=== PATIENT | female | born 1945 | race Caucasian/White ===

== ENCOUNTER → 2016-09-06 | Outpatient (CLI) | payer MEDICARE, OTHER ==
[~2016-09-06] MED LIST: AMLO5TAB; OLME20TA11 PO
== END ==
LOC: WC.BC 11:11
PROVIDERS: ATTEND Family Medicine
DX: Z12.31 Encounter for screening mammogram for malignant neoplasm of breast (principal)
CPT/HCPCS: 77063; G0202

== ENCOUNTER 2016-09-15 06:51 | Day surgery (SDC) | payer MEDICARE, OTHER ==
[~2016-09-15] VITALS: Ht 163.8 cm; Wt 87.3 kg
[~2016-09-15 06:51] MED LIST changes: -AMLO5TAB; +AMLO5TAB2 PO; +LOSA1TAB96 PO; -OLME20TA11 PO
--- OUTSIDE RECORDS SUMMARY | 2016-09-15 06:56 | XMS REPORT | Referral Summary ---
Author Author [facility], Family Medicine Organization [facility] Address Unknown Phone Unavailable Care Team Providers Care Exhaust Worker Name Role Phone Claire Noland Primary Care Physician [phone] Encounter VC Date(s): 03/16/15 - 03/16/15 [facility] [address] [place] [id number] Discharge Diagnosis: Benign essential hypertension Discharge Diagnosis: Leg cramps Discharge Diagnosis: Mixed hyperlipidemia Discharge Disposition: 01-Home or Self Care Attending Physician: Cody Noland MD Admitting Physician: Cody Noland MD Vital Signs Most recent to 1 oldest [Reference Range]: Temperature Tympanic 36.5 degC [36.6-38.1 degC] *LOW* (03/16/15 10:23 AM) Peripheral Pulse 76 bpm Rate [60-100 bpm] (03/16/15 10:23 AM) Blood Pressure 144/82 mmHg [90-140/60-90 mmHg] *HI* (03/16/15 10:23 AM) Problem List Condition Effective Dates Status Health Status Informant Adenomatous colon Active polyp(Confirmed) Allergic rhinitis Active (disorder)(Confirmed ) Allergic < 03/12/14 Resolved rhinitis(Confirmed) Allergies(Confirmed) < 03/12/14 Resolved Benign essential Active hypertension (disorder)(Confirmed ) DDD (degenerative Active disc disease), lumbosacral(Confirme d) Hyperlipidemia(Confi Active rmed) Hypertension(Confirm < 03/12/14 Resolved ed) Low back pain Resolved (finding)(Confirmed) Lumbago(Confirmed) < 03/12/14 Resolved Lumbosacral Resolved spondylosis without myelopathy (disorder)(Confirmed ) Lumbosacral < 03/12/14 Resolved spondylosis without myelopathy(Confirmed ) Menopausal < 03/12/14 Resolved symptoms(Confirmed)1 Migraines(Confirmed) Active Obesity(Confirmed) Active patient Osteoarthritis(Confi Active rmed) Osteoporosis(Confirm Active ed) Chronic back Active pain(Confirmed) Thoracic or < 03/12/14 Resolved lumbosacral neuritis or radiculitis, unspecified(Confirme d) 1postmenopausal hot flashes Allergies, Adverse Reactions, Alerts Substance Reaction Severity Status Benazepril Hydrochloride Active Medications amLODIPine 5 mg oral tablet See Instructions, 1 tabs Oral Daily, # 30 tabs, 4 Refill(s), eRx: [facility], 1 tabs Oral Daily Start Date: 07/13/15 Status: Ordered biotin 300 mcg oral tablet 1 tabs, Oral, Daily Start Date: 03/12/14 Status: Ordered Doryx 200 mg oral delayed release tablet 100 mg 0.5 tabs, Oral, Daily, # 60 tabs, 1 Refill(s), Pharmacy: [facility], 0.5 tabs Oral Daily Start Date: 04/06/15 Status: Ordered doxycycline hyclate 100 mg oral capsule 100 mg 1 caps, Oral, Daily, # 60 caps, 2 Refill(s), Pharmacy: [facility], 1 caps Oral Daily Start Date: 07/10/15 Status: Ordered Flonase 50 mcg/inh nasal spray See Instructions, 2 sprays Nasal Daily, # 1 Each, 5 Refill(s), eRx: [facility], 2 sprays Nasal Daily Start Date: 08/06/15 Status: Ordered Hyzaar 50 mg-12.5 mg oral tablet See Instructions, 1 tabs Oral Daily, # 30 tabs, 3 Refill(s), other reason (Rx) Start Date: 03/16/15 Status: Ordered losartan-hydrochlorothiazide 100 mg-25 mg oral tablet 1 tabs, Oral, Daily, # 30 tabs, 5 Refill(s), Pharmacy: [facility] Start Date: 06/05/15 Status: Ordered Misc Medication 1 tabs, Oral, Daily, 0 Refill(s) Start Date: 03/17/14 Status: Ordered Probiotic Formula caps, Oral, Daily, 0 Refill(s) Start Date: 12/29/14 Status: Ordered Vitamin D3 0 Refill(s) Start Date: 03/16/15 Status: Ordered Vitamin D3 1000 intl units oral tablet 1,000 Intl_Units 1 tabs, Oral, Daily, # 30 tabs, 0 Refill(s), other reason (Rx) Start Date: 03/16/15 Status: Ordered Results No data available for this section Immunizations Vaccine Date Refusal Reason tetanus/diphth/pertuss (Tdap) adult/adol 09/20/06 influenza virus vaccine, inactivated1 03/17/14 pneumococcal 13-valent conjugate vaccine 03/17/14 pneumococcal 23-polyvalent vaccine 05/29/08 1Result Comment: [03/17/2014] SEE SCANNED NOTE Procedures Procedure Date Related Diagnosis Body Site Left L4-5 translaminar 11/20/12 S/P colonoscopy1 06/02/11 S/p right breast biopsy 2010 Oophorectomy 1999 S/P vaginal hysterectomy - laparoscopy2 1989 S/P tubal ligation 1984 S/p appendectomy S/p cholecystectomy 1f/u 5 years 2nonmalignant Social History Social History Type Response Smoking Status Never smoker Assessment and Plan Extracted from: Title: Office Visit Note Author: Cody Noland MD Date: 03/16/15 Assessment/Plan Benign essential hypertension Leg cramps Mixed hyperlipidemia Orders: amLODIPine, See Instructions, 1 tabs Oral Daily, # 30 tabs, 3 Refill(s ), other reason (Rx), 1 tabs Oral Daily cholecalciferol, 1,000 Intl_Units 1 tabs, Oral, Daily, # 30 tabs, 0 Refill(s) , other reason (Rx) losartan-hydrochlorothiazide, See Instructions, 1 tabs Oral Daily, # 30 tabs, 3 Refill(s), other reason (Rx) Blood pressure today and at her last visit are both just slightly elevated. However she thinks this is due to increased stress and after discussion we decided not to change medications. She will work harder on lifestyle issues and monitor blood pressures 2-3 times per week for a month. She is to give me a report on those blood pressures after one month. If doing well follow-up in 6 months. At that she is also due for follow-up lipids which we will obtain fasting another day. Because of leg cramps I'll also check a BMP at that upcoming lab.
--- OUTSIDE RECORDS SUMMARY | 2016-09-15 06:56 | XMS REPORT | Referral Summary ---
Author Author [facility] Dermatology Organization [facility] Address Unknown Phone Unavailable Care Team Providers Care Account Executive Trainee Name Role Phone Claire Noland Primary Care Physician [phone] Encounter [facility] [id number] Date(s): 07/08/15 - 07/08/15 [facility] Dermatology [address], [place] [address] Discharge Diagnosis: Granulomatous rosacea Discharge Disposition: 01-Home or Self Care Attending Physician: Preet Jimenez MD Admitting Physician: Preet Jimenez MD Referring Physician: Cody Noland MD Vital Signs No data available for this section Problem List Condition Effective Dates Status Health [...] # 30 tabs, 3 Refill(s), other reason (Rx), 1 tabs Oral Daily Start Date: 03/16/15 Status: Ordered biotin 300 mcg oral tablet 1 tabs, Oral, Daily Start Date: 03/12/14 Status: Ordered Doryx 200 mg oral delayed release tablet See Instructions, Take 1/2 tablet QD, # 45 tabs, 3 Refill(s), Pharmacy: [facility], Take 1/2 tablet QD Start Date: 07/08/15 Status: Ordered Doryx 200 mg oral delayed release tablet 100 mg 0.5 tabs, Oral, Daily, # 60 tabs, 1 Refill(s), Pharmacy: [facility], 0.5 tabs Oral Daily Start Date: 04/06/15 Status: Ordered Flonase 50 mcg/inh nasal spray 2 sprays, Nasal, Daily, # 1 Each, 6 Refill(s), Pharmacy: [facility] Start Date: 07/22/14 Status: Ordered Hyzaar 50 mg-12.5 mg oral tablet See Instructions, 1 tabs Oral Daily, # 30 tabs, 3 Refill(s), other reason (Rx) Start Date: 03/16/15 Status: Ordered losartan-hydrochlorothiazide 100 mg-25 mg oral tablet 1 tabs, Oral, Daily, # 30 tabs, 5 Refill(s), Pharmacy: [facility] Start Date: 06/05/15 Status: Ordered Misc Medication [...] Extracted from: Title: Office Visit Note Author: Preet Jimenez MD Date: 07/08/15 Assessment/Plan 1.Granulomatous rosacea Not clear but some areas appear to be somewhat improved. No new lesions since her last visit. We discussed options and she will continue [id number] mg per dayand follow-up in 6 months. We will then reevaluate and decide if he wanted continue therapy or discontinue therapy at that time Ordered: Office Visit Level 3 Est 91959
--- OUTSIDE RECORDS SUMMARY | 2016-09-15 06:56 | XMS REPORT | Referral Summary ---
Author Author [facility] Family Medicine Organization [facility] Address Unknown Phone Unavailable Care Team Providers Care Upholsterer Assembly Line Name Role Phone Claire Noland Primary Care Physician [phone] Encounter Date(s): 06/13/16 - 06/13/16 [facility] [address] [place] [address] Discharge Diagnosis: Cough Discharge Diagnosis: Osteoarthritis Discharge Diagnosis: Allergic rhinitis Discharge Diagnosis: Benign essential hypertension Discharge Diagnosis: Osteoporosis Discharge Diagnosis: Overweight Discharge Diagnosis: Adenomatous colon polyp Discharge Diagnosis: Hyperlipidemia Discharge Diagnosis: Subacute sinusitis Discharge Diagnosis: Urine incontinence Discharge Diagnosis: Right sided abdominal pain Discharge Disposition: 01-Home or Self Care Attending Physician: Cody Noland MD Admitting Physician: Cody Noland MD Vital Signs Most recent to 1 oldest [Reference Range]: Peripheral Pulse 82 bpm Rate [60-100 bpm] (06/13/16 8:24 AM) Blood Pressure 140/80 mmHg [90-140/60-90 mmHg] (06/13/16 8:24 AM) Problem List Condition Effective Dates Status [...] Active Medications amLODIPine 5 mg oral tablet 5 mg 1 tabs, Oral, Daily, # 90 tabs, 3 Refill(s), Pharmacy: [facility], 1 tabs Oral Daily Start Date: 12/04/15 Status: Ordered biotin 300 mcg oral tablet 1 tabs, Oral, Daily Start Date: 03/12/14 Status: Ordered Flonase 50 mcg/inh nasal spray See Instructions, 2 sprays Nasal Daily, # 1 Each, 5 Refill(s), eRx: [facility], 2 sprays Nasal Daily Start Date: 08/06/15 Status: Ordered losartan-hydrochlorothiazide 100 mg-25 mg oral tablet 1 tabs, Oral, Daily, # 90 tabs, 3 Refill(s), Pharmacy: [facility] Start Date: 12/04/15 Status: Ordered Vitamin D3 1000 intl units oral tablet 1,000 Intl_Units 1 tabs, Oral, Daily, # 30 tabs, 0 Refill(s), other reason (Rx) Start Date: 03/16/15 Status: Ordered Results Hematology Most recent to 1 oldest [Reference Range]: WBC [4.8-10.8 12.4 10*3/uL 10*3/uL] *HI* (06/13/16 9:11 AM) RBC [4.00-5.20] 5.08 (06/13/16 9:11 AM) Hgb [12.0-16.0 15.6 gm/dL gm/dL] (06/13/16 9:11 AM) Hct [37.0-47.0 %] 48.3 % *HI* (06/13/16 9:11 AM) MCV [82.0-99.0 fL] 95.1 fL (06/13/16 9:11 AM) MCH [27.0-32.0 pg] 30.7 pg (06/13/16 9:11 AM) MCHC [32.0-36.0 32.3 gm/dL gm/dL] (06/13/16 9:11 AM) RDW [11.5-14.5 %] 13.4 % (06/13/16 9:11 AM) Platelet [150-400 320 10*3/uL 10*3/uL] (06/13/16 9:11 AM) MPV [8.8-14.8 fL] 10.3 fL (06/13/16 9:11 AM) Immature 1.8 % Granulocytes *HI* [0.0-1.0 %] (06/13/16 9:11 AM) Neutrophils [51-75 51 % %] (06/13/16 9:11 AM) Lymphocytes [20-46 34 % %] (06/13/16 9:11 AM) Monocytes [4-11 %] 11 % (06/13/16 9:11 AM) Eosinophils [0-4 %] 2 % (06/13/16 9:11 AM) Basophils [0-2 %] 0 % (06/13/16:11 AM) Neutro Absolute 6.35 [1.90-7.00] (06/13/16 9:11 AM) Lymph Absolute 4.19 [0.80-3.30] *HI* (06/13/16 9:11 AM) [place] Absolute 1.34 [0.30-1.00] *HI* (06/13/16 9:11 AM) Eos Absolute 0.28 [0.00-0.50] (06/13/16 9:11 AM) Baso Absolute 0.04 [0.00-0.20] (06/13/16 9:11 AM) Sed Rate [0-23] 5 (06/13/16 9:11 AM) Chemistry Most recent to 1 oldest [Reference Range]: Sodium Lvl [135-144 142 mEq/L mEq/L] (06/13/16 9:11 AM) Potassium Lvl 4.0 mEq/L [3.5-5.2 mEq/L] (06/13/16 9:11 AM) Chloride [99-111 104 mEq/L mEq/L] (06/13/16 9:11 AM) CO2 [22-31 mEq/L] 28 mEq/L (06/13/16 9:11 AM) AGAP [3-20] 10 (06/13/16 9:11 AM) BUN [10-20 mg/dL] 19 mg/dL (06/13/16 9:11 AM) Glucose Lvl [70-99 94 mg/dL mg/dL] (06/13/16 9:11 AM) Creatinine Lvl 0.89 mg/dL [0.57-1.11 mg/dL] (06/13/16 9:11 AM) eGFR [>60 mL/min] >60 mL/min 1 (06/13/16 9:11 AM) Calcium Lvl 10.3 mg/dL [8.9-10.5 mg/dL] (06/13/16 9:11 AM) Chol [0-199 mg/dL] 240 mg/dL *HI* (06/13/16 9:11 AM) Trig [0-149 mg/dL] 295 mg/dL *HI* (06/13/16 9:11 AM) HDL [40-84 mg/dL] 43 mg/dL (06/13/16 9:11 AM) LDL [0-130 mg/dL] 138 mg/dL *HI* (06/13/16 9:11 AM) VLDL Cholesterol 59 mg/dL [0-28 mg/dL] *HI* (06/13/16 9:11 AM) Cardiac Risk 5.6 [0.0-5.0] *HI* (06/13/16 9:11 AM) 1Result Comment: Multiply eGFR results by 1.21 for race. Urinalysis Most recent to 1 oldest [Reference Range]: UA Color Yellow (06/13/16 9:18 AM) UA Appear Cloudy *ABN* (06/13/16 9:18 AM) UA pH [5.0-8.0] 6.0 (06/13/16 9:18 AM) UA Leuk Est Pos 1+ [Negative] *ABN* (06/13/16 9:18 AM) UA Nitrite Negative [Negative] (06/13/16 9:18 AM) UA Protein Trace [Negative] *ABN* (06/13/16 9:18 AM) UA Glucose Negative [Negative] (06/13/16 9:18 AM) UA Ketones Negative [Negative] (06/13/16 9:18 AM) UA Urobilinogen 0.2 mg/dL [<1.0 mg/dL] (06/13/16 9:18 AM) UA Bili [Negative] Negative (06/13/16 9:18 AM) UA Blood [Negative] Negative (06/13/16 9:18 AM) UA Spec Grav 1.025 [1.003-1.030] (06/13/16 9:18 AM) Type Clean Catch (06/13/16 9:18 AM) UA WBC [0-4] 20-50 *ABN* (06/13/16 9:18 AM) UA RBC [0-4] 5-10 *ABN* (06/13/16 9:18 AM) UA Bacteria Numerous *ABN* (06/13/16 9:18 AM) Crystals Ca Ox (06/13/16 9:18 AM) UA Yeast Present *ABN* (06/13/16 9:18 AM) UA Mucous Present (06/13/16 9:18 AM) Immunizations Given and Recorded Vaccine Date Status Refusal Reason tetanus/diphth/pertuss (Tdap) adult/adol 09/20/06 Recorded influenza virus vaccine, inactivated1 03/17/14 Recorded pneumococcal 13-valent conjugate vaccine 03/17/14 Given pneumococcal 23-polyvalent vaccine 05/29/08 Recorded 1Result Comment: [03/17/2014] SEE SCANNED NOTE Procedures Procedure Date Related Diagnosis Body Site Left L4-5 translaminar 11/20/12 S/P colonoscopy1 06/02/11 S/p right breast biopsy 2010 Oophorectomy 1999 S/P vaginal hysterectomy - laparoscopy2 1989 S/P tubal ligation 1984 S/p appendectomy S/p cholecystectomy 1f/u 5 years 2nonmalignant Social History Social History Type Response Smoking Status Never smoker Assessment and Plan Extracted from: [facility] Author: Cody Noland MD Date: 06/13/16 Impression and Plan Diagnosis Adenomatous colon polyp (JFL22-EP D12.6, Discharge, Medical). Allergic rhinitis (QRR08-[place] J30.9, Discharge, Medical). Benign essential hypertension (TAU18-RJ I10, Discharge, Medical). Cough (DKU39-FB R05, Discharge, Medical). Hyperlipidemia (ZVA07-RF E78.5, Discharge, Medical). Osteoarthritis (DXF58-ER M19.90, Discharge, Medical). Osteoporosis (VXF83-UO M81.0, Discharge, Medical). Overweight (OTE81-DH E66.3, Discharge, Medical). Right sided abdominal pain (BCZ08-WE R10.9, Discharge, Medical). Subacute sinusitis (JLC68-WK J01.90, Discharge, Medical). Urine incontinence (ADS53-DM R32, Discharge, Medical). Orders Orders (Selected) Outpatient Orders Future (On Hold) BMP: CBC w/ Differential: Fasting Lipid Profile: Sedimentation Rate: Urinalysis with Culture if Indicated: .
--- OUTSIDE RECORDS SUMMARY | 2016-09-15 06:57 | XMS REPORT | Referral Summary ---
Author Author [facility], Family Medicine Organization [facility] Address Unknown Phone Unavailable Care Team Providers Care Special Police Officer Name Role Phone Claire Noland Primary Care Physician [phone] Encounter VC Date(s): 03/16/15 - 03/16/15 [facility] [address] [place] [id number] Discharge Diagnosis: Benign essential hypertension Discharge Diagnosis: [...] Resolved Benign essential Active hypertension (disorder)(Confirmed ) Chronic back Active pain(Confirmed) DDD (degenerative Active disc disease), lumbosacral(Confirme d) Hyperlipidemia(Confi Active rmed) Hypertension(Confirm < 03/12/14 Resolved ed) Low back pain Resolved (finding)(Confirmed) Lumbago(Confirmed) < 03/12/14 Resolved Lumbosacral Resolved spondylosis without myelopathy (disorder)(Confirmed ) Lumbosacral < 03/12/14 Resolved spondylosis without myelopathy(Confirmed ) Menopausal < 03/12/14 Resolved symptoms(Confirmed)1 Migraines(Confirmed) Active Obesity(Confirmed) Active patient Osteoarthritis(Confi Active rmed) Osteoporosis(Confirm Active ed) Thoracic or < 03/12/14 Resolved lumbosacral neuritis [...] Daily, # 1 Each, 6 Refill(s), Pharmacy: [facility] Start Date: 07/22/14 Status: Ordered Hyzaar 50 mg-12.5 mg oral tablet See Instructions, 1 tabs Oral Daily, # 30 tabs, 3 Refill(s), other reason (Rx) Start Date: 03/16/15 Status: Ordered Misc Medication 1 tabs, Oral, [...] Left L4-5 translaminar 11/20/12 S/P colonoscopy1 06/02/11 Oophorectomy 2010 S/p right breast biopsy 2010 Oophorectomy 1999 [...]
--- OUTSIDE RECORDS SUMMARY | 2016-09-15 06:57 | XMS REPORT | Referral Summary ---
Author Author [facility] Family Medicine Organization [facility] Address Unknown Phone Unavailable Care Team Providers Care Inpatient Coder Name Role Phone Claire Noland Primary Care Physician [phone] Encounter [facility] Date(s): 03/16/15 - 03/16/15 [facility] [address] [place] [address] Discharge Diagnosis: Benign essential hypertension [...] Daily, # 1 Each, 6 Refill(s), Pharmacy: [facility] Start Date: 07/22/14 Status: Ordered [...]
--- OUTSIDE RECORDS SUMMARY | 2016-09-15 06:57 | XMS REPORT | Referral Summary ---
Author Author [facility] Family Medicine Organization [facility] Address Unknown Phone Unavailable Care Team Providers Care Cd Reactor Operator Head Name Role Phone Claire Noland Primary Care Physician [phone] Encounter VC Date(s): 10/22/14 - 10/22/14 [facility] [address] [place] [address] Discharge Diagnosis: Benign essential hypertension Discharge Diagnosis: Right shoulder pain Discharge Diagnosis: Hand tingling Discharge Disposition: 01-Home or Self Care Attending Physician: Cody Noland MD Admitting Physician: Cody Noland MD Vital Signs Most recent to 1 oldest [Reference Range]: Temperature Tympanic 36.1 degC [36.6-38.1 degC] *LOW* (10/22/14 9:38 AM) Peripheral Pulse 64 bpm Rate [60-100 bpm] (10/22/14 9:38 AM) Blood Pressure 160/69 mmHg [90-140/60-90 mmHg] *HI* (10/22/14 9:38 AM) Problem List Condition Effective Dates Status [...] Daily, # 60 tabs, 1 Refill(s), Pharmacy: [facility], 0.5 tabs Oral Daily Start Date: 04/06/15 Status: Ordered Flonase 50 mcg/inh nasal spray 2 sprays, Nasal, Daily, # 1 Each, 6 Refill(s), Pharmacy: [facility] Start Date: 07/22/14 Status: Ordered Hyzaar 50 [...] Visit Note Author: Cody Noland MD Date: 10/22/14 Assessment/Plan Benign essential hypertension Blood pressure elevated today, and I advised her that the anti-inflammatory may also contribute to blood pressure elevation. Recommend monitoring. Hand tingling Distribution is consistent with the C6 or C7 nerve root, but is intermittent. At this point we will manage conservatively and follow. Right shoulder pain I suspect primarily rotator cuff strain. Refer for physical therapy and we'll try meloxicam. Follow-up for reevaluation in 2-3 weeks. Orders: meloxicam, 15 mg 1 tabs, Oral, Daily, # 20 tabs, 0 Refill(s), Pharmacy : [facility], 1 tabs Oral Daily
--- OUTSIDE RECORDS SUMMARY | 2016-09-15 06:57 | XMS REPORT | Referral Summary ---
Author Author [facility] Family Medicine Organization [facility] Address Unknown Phone Unavailable Care Team Providers Care Child Care Lead Teacher Name Role Phone Claire Noland Primary Care Physician [phone] Encounter VC Date(s): 11/26/14 - 11/26/14 [facility] Family [address] [place] [address] Discharge Diagnosis: Benign essential hypertension Discharge Diagnosis: Allergic rhinitis Discharge Diagnosis: Right shoulder pain Discharge Disposition: 01-Home or Self Care Attending Physician: Cody Noland MD Admitting Physician: Cody Noland MD Vital Signs Most recent to 1 oldest [Reference Range]: Temperature Tympanic 35.2 degC [36.6-38.1 degC] *LOW* (11/26/14 8:54 AM) Peripheral Pulse 68 bpm Rate [60-100 bpm] (11/26/14 8:54 AM) Blood Pressure 145/78 mmHg [90-140/60-90 mmHg] *HI* (11/26/14 8:54 AM) Problem List Condition Effective Dates Status [...] Daily, # 60 tabs, 1 Refill(s), Pharmacy: [facility], 0.5 tabs Oral Daily Start Date: [...] Visit Note Author: Cody Noland MD Date: 11/27/14 Assessment/Plan Allergic rhinitis Benign essential hypertension Borderline. Advised monitoring. Right shoulder pain Continue physical therapy and we will approve additional visits if that seems likely to be of benefit- follow-up when necessary.
--- OUTSIDE RECORDS SUMMARY | 2016-09-15 06:57 | XMS REPORT | CCD ---
Author Author [facility] Organization Unknown Address [address], [place] [id number] Phone 0 Care Team Providers Care Registered Nurse Ambulatory Name Role Phone Claire MONAE Attending Physician [phone] Vital Signs Unknown or Not Available. Allergies Unknown or Not Available. Procedures Unknown or Not Available. History of Immunizations Unknown or Not Available. Problems Unknown or Not Available. Results Unknown or Not Available. Active Medications Unknown or Not Available. Medications Administered During Visit Unknown or Not Available. Encounters Encounter Diagnosis Diagnosis Code Start Date PHYSICAL THERAPY NEC V571 11/03/2014 Social History Smoking Status Code Start Date End Date Never smoker [id number] Patient Decision Aids Unknown or Not Available. Discharge Instructions You were admitted to [facility] on 11/03/2014 with a principal diagnosis of PHYSICAL THERAPY NEC. Should you have any questions prior to discharge, please contact a member of your healthcare team. If you have left the hospital and have any questions, please contact your primary care physician. Chief Complaint and Reason For Visit Unknown or Not Available. Function Status Unknown or Not Available. Plan of Care Unknown or Not Available. Referral/Transition of Care Unknown or Not Available.
--- OUTSIDE RECORDS SUMMARY | 2016-09-15 06:57 | XMS REPORT | Referral Summary ---
Author Author [facility] Organization [facility] Address Unknown Phone Unavailable Care Team Providers Care Hobbing Press Operator Name Role Phone Claire Noland Primary Care Physician [phone] Encounter VC Date(s): 12/29/14 - 12/29/14 [facility] Family [address] [place] [address] Discharge Diagnosis: Folliculitis Discharge Diagnosis: Family history of MRSA infection Discharge Disposition: 01-Home or Self Care Attending Physician: Ahmet Eldridge DO Admitting Physician: Ahmet Eldridge DO Vital Signs Most recent to 1 oldest [Reference Range]: Temperature Tympanic 36.6 degC [36.6-38.1 degC] (12/29/14 12:50 PM) Apical Heart Rate 76 bpm [60-100 bpm] (12/29/14 12:50 PM) Blood Pressure 122/62 mmHg [90-140/60-90 mmHg] (12/29/14 12:50 PM) SpO2 97 % (12/29/14 12:50 PM) Problem List Condition Effective Dates Status Health [...] Daily, # 60 tabs, 1 Refill(s), Pharmacy: [facility], 0.5 tabs Oral Daily Start Date: 04/06/15 Status: Ordered doxycycline hyclate 100 mg oral capsule 100 mg 1 caps, Oral, Daily, # 60 caps, 2 Refill(s), Pharmacy: [facility], 1 caps Oral Daily Start Date: 07/10/15 Status: Ordered Flonase 50 mcg/inh nasal spray 2 sprays, Nasal, Daily, # 1 Each, 6 Refill(s), Pharmacy: [facility] Start Date: 07/22/14 Status: Ordered Hyzaar 50 mg-12.5 mg oral tablet See Instructions, 1 tabs Oral Daily, # 30 tabs, 3 Refill(s), other reason (Rx) Start Date: 03/16/15 Status: Ordered losartan-hydrochlorothiazide 100 mg-25 mg oral tablet 1 tabs, Oral, Daily, # 30 tabs, 5 Refill(s), Pharmacy: [facility] Start Date: 06/05/15 Status: Ordered Misc [...] Extracted from: Title: Office Visit Note Author: Ahmet Eldridge DO Date: 12/29/14 Assessment/Plan Family history of MRSA infection 1. We will treat her with Bactrim to cover MRSA. Ordered: Office Visit Level 3 Est 49443 Folliculitis 1. No rashes more consistent with folliculitis. 2. Bactrim double strength one tablet twice a day for 7 days. 3. Follow-up if worsening presentation. Ordered: Office Visit Level 3 Est 12039 Orders: sulfamethoxazole-trimethoprim, 1 tabs, Oral, BID, X 7 days, # 14 tabs , 0 Refill(s), Pharmacy: [facility]
--- OUTSIDE RECORDS SUMMARY | 2016-09-15 06:57 | XMS REPORT | Referral Summary ---
Author Author [facility] Organization [facility] Address Unknown Phone Unavailable Care Team Providers Care [employer] Principal Name Role Phone Claire Noland Primary Care Physician [phone] Encounter Date(s): 03/18/15 - 03/18/15 [facility] [address] [place], [place] [address] Discharge Diagnosis: Skin rash Discharge Disposition: 01-Home or Self Care Attending [...] Daily, # 1 Each, 6 Refill(s), Pharmacy: [facility] Start Date: 07/22/14 Status: Ordered [...] (Rx) Start Date: 03/16/15 Status: Ordered Results Chemistry Most recent to 1 oldest [Reference Range]: Sodium Lvl [135-144 141 mEq/L mEq/L] (03/18/15 9:55 AM) Potassium Lvl 4.6 mEq/L [3.5-5.2 mEq/L] (03/18/15 9:55 AM) Chloride [99-111 107 mEq/L mEq/L] (03/18/15 9:55 AM) CO2 [22-31 mEq/L] 27 mEq/L (03/18/15 9:55 AM) AGAP [3-20] 7 (03/18/15 9:55 AM) BUN [10-20 mg/dL] 13 mg/dL (03/18/15 9:55 AM) Glucose Lvl [70-99 89 mg/dL mg/dL] (03/18/15 9:55 AM) Creatinine Lvl 0.79 mg/dL [0.57-1.11 mg/dL] (03/18/15 9:55 AM) eGFR [>60 mL/min] >60 mL/min 1 (03/18/15 9:55 AM) Calcium Lvl 10.1 mg/dL [8.9-10.5 mg/dL] (03/18/15 9:55 AM) Chol [0-199 mg/dL] 239 mg/dL *HI* (03/18/15 9:55 AM) Trig [0-149 mg/dL] 245 mg/dL *HI* (03/18/15 9:55 AM) HDL [40-84 mg/dL] 42 mg/dL (03/18/15 9:55 AM) LDL [0-130 mg/dL] 148 mg/dL *HI* (03/18/15 9:55 AM) VLDL Cholesterol 49 mg/dL [0-28 mg/dL] *HI* (03/18/15 9:55 AM) Cardiac Risk 5.7 [0.0-5.0] *HI* (03/18/15 9:55 AM) 1Result Comment: Multiply eGFR results by 1.21 for race. Immunizations Vaccine Date Refusal Reason tetanus/diphth/pertuss (Tdap) adult/adol 09/20/06 influenza virus vaccine, inactivated1 03/17/14 pneumococcal 13-valent conjugate vaccine 03/17/14 pneumococcal 23-polyvalent vaccine 05/29/08 1Result Comment: [03/17/2014] SEE SCANNED NOTE Procedures Procedure Date Related Diagnosis Body Site Biopsy of skin, subcutaneous tissue and/or 03/18/15 mucous membrane (including simple closure), unless otherwise listed; single lesion Left L4-5 translaminar 11/20/12 S/P colonoscopy1 06/02/11 Oophorectomy 2010 S/p right breast biopsy 2010 Oophorectomy 1999 S/P vaginal hysterectomy - laparoscopy2 1989 S/P tubal ligation 1984 S/p appendectomy S/p cholecystectomy 1f/u 5 years 2nonmalignant Social History Social History Type Response Smoking Status Never smoker Assessment and Plan Extracted from: Title: Office Visit Note Author: Preet Jimenez MD Date: 03/18/15 Assessment/Plan 1.Skin rash This could be a folliculitis but I also want to rule out a type of atypical lymphoid process or granulomatous process. 4 mm punch biopsy today and follow-up in a week for suture removal or sooner for problems. Follow-up with me in a routine appointment slot in 3 weeks or so to review results and decide on treatment course Ordered: Biopsy Of Skin, Single Lesion 82948 Office Visit Level 2 New 96595
--- OUTSIDE RECORDS SUMMARY | 2016-09-15 06:57 | XMS REPORT | Continuity of Care Document ---
Author Author [facility] Organization [facility] Address Unknown Phone Unavailable Allergies Medications Problems Procedures Results Encounters ACCT No. Visit Date/Time Discharge Status Pt. Type Provider Facility Loc./Unit Complaint [id number] 08/22/2013 09:08:00 08/22/2013 23 :59:59 CLS Outpatient
--- OUTSIDE RECORDS SUMMARY | 2016-09-15 06:57 | XMS REPORT | Referral Summary ---
Author Author [facility] Organization [facility] Address Unknown Phone Unavailable Care Team Providers Care Cargo And Ramp Services Manager Name Role Phone Claire Noland Primary Care Physician [phone] Encounter Date(s): 12/04/15 - 12/04/15 [facility] [address] [place] [address] Discharge Diagnosis: Encounter for medication monitoring Discharge Diagnosis: Palpitations Discharge Diagnosis: Muscle strain of right upper back Discharge Diagnosis: Hyperlipidemia Discharge Diagnosis: Benign essential hypertension Discharge Disposition: 01-Home or Self Care Attending Physician: Cody Noland MD Admitting Physician: Cody Noland MD Vital Signs Most recent to 1 oldest [Reference Range]: Temperature Tympanic 35.6 degC [36.6-38.1 degC] *LOW* (12/04/15 8:03 AM) Peripheral Pulse 68 bpm Rate [60-100 bpm] (12/04/15 8:03 AM) Blood Pressure 142/73 mmHg [90-140/60-90 mmHg] *HI* (12/04/15 8:03 AM) Problem List Condition Effective Dates Status [...] Daily, # 90 tabs, 3 Refill(s), Pharmacy: [facility], 1 tabs Oral Daily Start Date: 12/04/15 Status: Ordered biotin 300 mcg oral tablet 1 tabs, Oral, Daily Start Date: 03/12/14 Status: Ordered Flonase 50 mcg/inh nasal spray See Instructions, 2 sprays Nasal Daily, # 1 Each, 5 Refill(s), eRx: [facility], 2 sprays Nasal Daily Start Date: 08/06/15 Status: Ordered losartan-hydrochlorothiazide 100 mg-25 mg oral tablet 1 tabs, Oral, Daily, # 90 tabs, 3 Refill(s), Pharmacy: [facility] Start Date: 12/04/15 Status: Ordered Vitamin D3 1000 intl units oral tablet 1,000 Intl_Units 1 tabs, Oral, Daily, # 30 tabs, 0 Refill(s), other reason (Rx) Start Date: 03/16/15 Status: Ordered Results Chemistry Most recent to 1 oldest [Reference Range]: Sodium Lvl [135-144 141 mEq/L mEq/L] (12/04/15 9:43 AM) Potassium Lvl 3.8 mEq/L [3.5-5.2 mEq/L] (12/04/15 9:43 AM) Chloride [99-111 105 mEq/L mEq/L] (12/04/15 9:43 AM) CO2 [22-31 mEq/L] 27 mEq/L (12/04/15 9:43 AM) AGAP [3-20] 9 (12/04/15 9:43 AM) BUN [10-20 mg/dL] 14 mg/dL (12/04/15 9:43 AM) Glucose Lvl [70-99 100 mg/dL mg/dL] *HI* (12/04/15 9:43 AM) Creatinine Lvl 0.76 mg/dL [0.57-1.11 mg/dL] (12/04/15 9:43 AM) eGFR [>60 mL/min] >60 mL/min 1 (12/04/15 9:43 AM) Calcium Lvl 10.2 mg/dL [8.9-10.5 mg/dL] (12/04/15 9:43 AM) Albumin Lvl [3.4-4.8 4.4 gm/dL gm/dL] (12/04/15 9:43 AM) Total Protein 6.6 gm/dL 2 [6.0-7.6 gm/dL] (12/04/15 9:43 AM) ALT [0-55 U/L] 15 U/L (12/04/15 9:43 AM) AST [5-34 U/L] 14 U/L (12/04/15 9:43 AM) Alk Phos [40-150 82 U/L U/L] (12/04/15 9:43 AM) Bili Total [0.2-1.2 1.0 mg/dL mg/dL] (12/04/15 9:43 AM) Bili Direct [0.0-0.5 0.3 mg/dL mg/dL] (12/04/15 9:43 AM) Bili Indirect 0.7 mg/dL [0.0-1.0 mg/dL] (12/04/15 9:43 AM) TSH with Reflex Free 1.55 T4 [0.35-4.94] (12/04/15 9:43 AM) 1Result Comment: Multiply eGFR results by 1.21 for race. 2Result Comment: Please note new reference range for adult Protein. Immunizations Vaccine Date Refusal Reason tetanus/diphth/pertuss (Tdap) adult/adol 09/20/06 influenza virus vaccine, inactivated1 03/17/14 pneumococcal 13-valent conjugate vaccine 03/17/14 pneumococcal 23-polyvalent vaccine 05/29/08 1Result Comment: [03/17/2014] SEE SCANNED NOTE Procedures Procedure Date Related Diagnosis Body Site Left L4-5 translaminar 11/20/12 S/P colonoscopy1 06/02/11 S/p right breast biopsy 2011 Oophorectomy 1999 S/P vaginal hysterectomy - laparoscopy2 1989 S/P tubal ligation 1984 S/p appendectomy S/p cholecystectomy 1f/u 5 years 2nonmalignant Social History Social History Type Response Smoking Status Never smoker Assessment and Plan Extracted from: Title: Holter Monitor Author: Elma Schilling RN Date: 12/04/15 Holter monitor ordered by Dr. Noland was placed on patient today. Reviewed with her monitor care and logging instructions. She verbalized understanding. Instructed her to remove monitor after 24 hours due to it being Monday today, remove the battery and bring in the monitor and log on Monday. She verbalized understanding. Extracted from: Title: CDM-OV * Author: Cody Noland MD Date: 12/04/15 Impression and Plan Diagnosis Encounter for medication monitoring ([id number] Z51.81, Discharge, Medical). Benign essential hypertension (LPZ13-[id number] I10, Discharge, Medical). Hyperlipidemia (GER28-QH E78.5, Discharge, Medical). Palpitations (ZJM21-ZR R00.2, Discharge, Medical). Muscle strain of right upper back (YMJ96-UD S29.012A, Discharge, Medical). Orders Orders (Selected) Outpatient Orders Future (On Hold) BMP: Liver Panel: TSH with Reflex Free T4: Prescriptions Prescribed amLODIPine 5 mg oral tablet: 5 mg=1 tabs, Oral, Daily, 90 tabs, 3 Refill(s) losartan-hydrochlorothiazide 100 mg-25 mg oral tablet: 1 tabs, Oral, Daily, 90 tabs, 3 Refill(s).
--- OUTSIDE RECORDS SUMMARY | 2016-09-15 06:57 | XMS REPORT | Referral Summary ---
Author Author [facility] Organization [facility] Address Unknown Phone Unavailable Care Team Providers Care Bankruptcy Processor Name Role Phone Claire Noland Primary Care Physician [phone] Encounter [facility] [id number] Date(s): 12/08/15 - 12/08/15 [facility] [address] [place], [place] [address] Discharge Disposition: 01-Home or Self Care Attending Physician: Cody Noland MD Vital Signs No [...] Daily, # 90 tabs, 3 Refill(s), Pharmacy: [facility], 1 tabs Oral Daily Start Date: 12/04/15 Status: Ordered biotin 300 mcg oral tablet 1 tabs, Oral, Daily Start Date: 03/12/14 Status: Ordered Flonase 50 mcg/inh nasal spray See Instructions, 2 sprays Nasal Daily, # 1 Each, 5 Refill(s), eRx: [facility], 2 sprays Nasal Daily Start Date: 08/06/15 Status: Ordered losartan-hydrochlorothiazide 100 mg-25 mg oral tablet 1 tabs, Oral, Daily, # 90 tabs, 3 Refill(s), Pharmacy: [facility] Start Date: 12/04/15 Status: Ordered [...] Smoking Status Never smoker Assessment and Plan No data available for this section
--- OUTSIDE RECORDS SUMMARY | 2016-09-15 06:57 | XMS REPORT | Referral Summary ---
Author Author [facility] Organization [facility] Address Unknown Phone Unavailable Care Team Providers Care Shell Worker Name Role Phone Claire Noland Primary Care Physician [phone] Encounter [facility] [id number] Date(s): 06/05/15 - 06/05/15 [facility] [address] [place] [address] Discharge Diagnosis: Osteoarthritis Discharge Diagnosis: Osteoporosis Discharge Diagnosis: Migraines Discharge Diagnosis: Benign essential hypertension Discharge Diagnosis: Hyperlipidemia Discharge Diagnosis: Hx of adenomatous polyp of colon Discharge Diagnosis: Allergic rhinitis Discharge Diagnosis: Chronic back pain Discharge Disposition: 01-Home or Self Care Attending Physician: Cody Noland MD Admitting Physician: Cody Noland MD Vital Signs Most recent to 1 oldest [Reference Range]: Peripheral Pulse 71 bpm Rate [60-100 bpm] (06/05/15 7:54 AM) Blood Pressure 130/80 mmHg [90-140/60-90 mmHg] (06/05/15 7:54 AM) Problem List Condition Effective Dates Status [...] Daily, # 60 tabs, 1 Refill(s), Pharmacy: [facility], 0.5 tabs Oral Daily Start Date: 04/06/15 Status: Ordered Flonase 50 mcg/inh nasal spray 2 sprays, Nasal, Daily, # 1 Each, 6 Refill(s), Pharmacy: [facility] Start Date: 07/22/14 Status: Ordered Hyzaar 50 mg-12.5 mg oral tablet See Instructions, 1 tabs Oral Daily, # 30 tabs, 3 Refill(s), other reason (Rx) Start Date: 03/16/15 Status: Ordered losartan-hydrochlorothiazide 100 mg-25 mg oral tablet 1 tabs, Oral, Daily, # 30 tabs, 5 Refill(s), Pharmacy: [facility] Start Date: 06/05/15 Status: Ordered [...] Range]: Sodium Lvl [135-144 142 mEq/L mEq/L] (06/05/15 9:18 AM) Potassium Lvl 4.0 mEq/L [3.5-5.2 mEq/L] (06/05/15 9:18 AM) Chloride [99-111 105 mEq/L mEq/L] (06/05/15 9:18 AM) CO2 [22-31 mEq/L] 27 mEq/L (06/05/15 9:18 AM) AGAP [3-20] 10 (06/05/15 9:18 AM) BUN [10-20 mg/dL] 14 mg/dL (06/05/15 9:18 AM) Glucose Lvl [70-99 103 mg/dL mg/dL] *HI* (06/05/15 9:18 AM) Creatinine Lvl 0.82 mg/dL [0.57-1.11 mg/dL] (06/05/15 9:18 AM) eGFR [>60 mL/min] >60 mL/min 1 (06/05/15 9:18 AM) Calcium Lvl 10.7 mg/dL [8.9-10.5 mg/dL] *HI* (06/05/15 9:18 AM) 1Result Comment: Multiply eGFR results by [...] smoker Assessment and Plan Extracted from: Title: CRMMP Author: Cody Noland MD Date: 06/05/15 Assessment/Plan Allergic rhinitis Benign essential hypertension Ordered: Basic Metabolic Panel Chronic back pain Hx of adenomatous polyp of colon Hyperlipidemia Migraines Osteoarthritis Osteoporosis Ordered: BD Bone Density DEXA Axial Skeleton BD Bone Density DEXA Axial Skeleton Orders: losartan-hydrochlorothiazide, 1 tabs, Oral, Daily, # 30 tabs, 5 Refill (s), Pharmacy: [facility] Blood pressure not quite adequately controlled. We will increase losartan- HCTZ from 50-12.5 up to 100-25. Prescription provided, but she can use up her current supply by taking 2 pills daily. She is to monitor blood pressures and give me an update in one month as to how they're doing. If this goes well. Follow-up in 6 months. Otherwise continue present care. We will recheck bone density study today. BMP ordered as monitoring. She is due for repeat colonoscopy in May,. Follow-up in 6 months or sooner if needed.
--- OUTSIDE RECORDS SUMMARY | 2016-09-15 06:57 | XMS REPORT | Referral Summary ---
Author Author [facility] Organization [facility] Address Unknown Phone Unavailable Care Team Providers Care Python Developer Name Role Phone Claire Noland Primary Care Physician [phone] Encounter Date(s): 04/06/15 - 04/06/15 [facility] [address] [place], [place] [address] Discharge Diagnosis: Granulomatous rosacea Discharge Disposition: 01-Home [...] Daily, # 60 tabs, 1 Refill(s), Pharmacy: [facility], 0.5 tabs Oral Daily Start Date: 04/06/15 Status: Ordered Flonase 50 mcg/inh nasal spray 2 sprays, Nasal, Daily, # 1 Each, 6 Refill(s), Pharmacy: [facility] Start Date: 07/22/14 Status: Ordered Hyzaar [...] smoker Assessment and Plan Extracted from: Title: Ambulatory Patient Education Author: Preet Jimenez MD Date: 04/06 Family [facility] Rosacea Rosacea is a long-term (chronic) condition that affects the skin of the face ( cheeks, nose, brow, and chin) and sometimes the eyes. Rosacea causes the blood vessels near the surface of the skin to enlarge, resulting in redness. This condition usually begins after age 30. It occurs most often in light-skinned women. Without treatment, rosacea tends to get worse over time. There is no cure for rosacea, but treatment can help control your symptoms. CAUSES The cause is unknown. It is thought that some people may inherit a tendency to develop rosacea. Certain triggers can make your rosacea worse, including: Hot baths. Exercise. Sunlight. Very hot or cold temperatures. Hot or spicy foods and drinks. Drinking alcohol. Stress. Taking blood pressure medicine. Long-term use of topical steroids on the face. SYMPTOMS Redness of the face. Red bumps or pimples on the face. Red, enlarged nose (rhinophyma). Blushing easily. Red lines on the skin. Irritated or burning feeling in the eyes. Swollen eyelids. DIAGNOSIS Your caregiver can usually tell what is wrong by asking about your symptoms and performing a physical exam. TREATMENT Avoiding triggers is an important part of treatment. You will also need to see a on site services specialist (shirt ironer) who can develop a treatment plan for you. The goals of treatment are to control your condition and to improve the appearance of your skin. It may take several weeks or months of treatment before you notice an improvement in your skin. Even after your skin improves, you will likely need to continue treatment to prevent your rosacea from coming back. Treatment methods may include: Using sunscreen or sunblock daily to protect the skin. Antibiotic medicine, such as metronidazole, applied directly to the skin. Antibiotics taken by mouth. This is usually prescribed if you have eye problems from your rosacea. Laser surgery to improve the appearance of the skin. This surgery can reduce the appearance of red lines on the skin and can remove excess tissue from the nose to reduce its size. HOME CARE INSTRUCTIONS Avoid things that seem to trigger your flare-ups. If you are given antibiotics, take them as directed. Finish them even if you start to feel better. Use a gentle facial cleanser that does not contain alcohol. You may use a mild facial moisturizer. Use a sunscreen or sunblock with SPF 30 or greater. Wear a green-tinted foundation powder to conceal redness, if needed. Choose cosmetics that are noncomedogenic. This means they do not block your pores. If your eyelids are affected, apply warm compresses to the eyelids. Do this up to 4 times a day or as directed by your caregiver. SEEK MEDICAL CARE IF: Your skin problems get worse. You feel depressed. You lose your appetite. You have trouble concentrating. You have problems with your eyes, such as redness or itching. MAKE SURE YOU: Understand these instructions. Will watch your condition. Will get help right away if you are not doing well or get worse. Document Released: 06/15/2005 Document Revised: 11/06/2012 Document Reviewed: [facility] [place] Patient Information 2015 [place] [facility]. This information is not intended to replace advice given to you by your health care provider. Make sure you discuss any questions you have with your health care provider. No follow up information was provided. Extracted from: Title: Office Visit Note Author: Preet Jimenez MD Date: 04/06/15 Assessment/Plan 1.Granulomatous rosacea Biopsy and presentation consistent with granulomatous rosacea. We discussed options and risks and sun protection and will treat with Doryx 100 mg per day and follow-up in 3 months to adjust dose as needed. We discussed risks and safe and proper use the medication. We will order the medication through [facility] mail-order pharmacy Ordered: Office Visit Level 3 Est 02661
--- OUTSIDE RECORDS SUMMARY | 2016-09-15 06:57 | XMS REPORT | Referral Summary ---
Author Author [facility] Organization [facility] Address Unknown Phone Unavailable Care Team Providers Care Operational Meteorologist Name Role Phone Claire Noland Primary Care Physician [phone] Encounter [facility] Date(s): 03/16/15 - 03/16/15 [facility] [address] [place] [address] Discharge Diagnosis: Benign essential hypertension Discharge [...] Daily, # 1 Each, 6 Refill(s), Pharmacy: [facility] Start Date: 07/22/14 Status: [...]
--- OUTSIDE RECORDS SUMMARY | 2016-09-15 06:57 | XMS REPORT | Referral Summary ---
Author Author [facility] Organization [facility] Address Unknown Phone Unavailable Care Team Providers Care Family Lawyer Name Role Phone Claire Noland Primary Care Physician [phone] Encounter [facility] Date(s): 02/04/15 - 02/04/15 [facility] [address] [place] [address] Discharge Diagnosis: Folliculitis Discharge Disposition: 01-Home or Self Care Attending Physician: Ahmet Eldridge DO Admitting Physician: Ahmet Eldridge DO Vital Signs Most recent to 1 oldest [Reference Range]: Temperature Tympanic 35 degC [36.6-38.1 degC] *LOW* (02/04/15 1:38 PM) Peripheral Pulse 68 bpm Rate [60-100 bpm] (02/04/15 1:38 PM) Blood Pressure 144/80 mmHg [90-140/60-90 mmHg] *HI* (02/04/15 1:38 PM) Problem List Condition Effective Dates Status [...] Daily, # 30 tabs, 4 Refill(s), eRx: [facility], 1 tabs Oral Daily Start Date: 07/13/15 Status: Ordered biotin 300 mcg oral tablet 1 tabs, Oral, Daily Start Date: 03/12/14 Status: Ordered Doryx 200 mg oral delayed release tablet 100 mg 0.5 tabs, Oral, Daily, # 60 tabs, 1 Refill(s), Pharmacy: [facility], 0.5 tabs Oral Daily Start Date: 04/06/15 Status: Ordered doxycycline hyclate 100 mg oral capsule 100 mg 1 caps, Oral, Daily, # 60 caps, 2 Refill(s), Pharmacy: [facility], 1 caps Oral Daily Start Date: 07/10/15 Status: Ordered Flonase 50 mcg/inh nasal spray See Instructions, 2 sprays Nasal Daily, # 1 Each, 5 Refill(s), eRx: [facility], 2 sprays Nasal Daily Start Date: 08/06/15 Status: Ordered Hyzaar 50 mg-12.5 mg oral tablet See Instructions, 1 tabs Oral Daily, # 30 tabs, 3 Refill(s), other reason (Rx) Start Date: 03/16/15 Status: Ordered losartan-hydrochlorothiazide 100 mg-25 mg oral tablet 1 tabs, Oral, Daily, # 30 tabs, 5 Refill(s), Pharmacy: [facility] Start Date: 06/05/15 Status: Ordered Misc Medication [...] (Rx) Start Date: 03/16/15 Status: Ordered Results Microbiology Reports TEST: Wound Culture STATUS: Auth (Verified) BODY SITE: Forehead SOURCE: Skin COLLECTED DATE/TIME: 02/04/15 2:00 PM Wound Culture Staphylococcus, coagulase negative Small amount Susceptibility not performed ORGANISM:Staphylococcus coagulase negative Immunizations Vaccine Date Refusal Reason tetanus/diphth/pertuss (Tdap) [...] Visit Note Author: Ahmet Eldridge DO Date: 02/04/15 Assessment/Plan Folliculitis, OTHER SPECIFIED DISEASES OF HAIR AND HAIR FOLLICLES Pathophysiology of this presentation, and differential diagnosis, discussed in detail with the patient and her who was present. All questions were answered. 1. Culture obtained, once we get report we will discuss with the patient and treat accordingly. 2. If the culture is inconclusive then we plan on sending her to dermatology for further evaluation. Ordered: Office Visit Level 3 Est 11912 Rash, RASH AND OTHER NONSPECIFIC SKIN ERUPTION As above. Ordered: Office Visit Level 3 Est 20429 Wound Culture
--- OUTSIDE RECORDS SUMMARY | 2016-09-15 06:57 | XMS REPORT | Referral Summary ---
Author Author [facility] Organization [facility] Address Unknown Phone Unavailable Care Team Providers Care Fuse Maker Name Role Phone Claire Noland Primary Care Physician [phone] Encounter Date(s): 03/18/15 - 03/18/15 [facility] [address] [place], [place] [address] Discharge Diagnosis: Skin rash Discharge Disposition: 01-Home [...] Daily, # 30 tabs, 4 Refill(s), eRx: [facility], 1 tabs Oral Daily Start Date: 07/13/15 Status: Ordered biotin 300 mcg oral tablet 1 tabs, Oral, Daily Start Date: 03/12/14 Status: Ordered Doryx 200 mg oral delayed release tablet 100 mg 0.5 tabs, Oral, Daily, # 60 tabs, 1 Refill(s), Pharmacy: [facility], 0.5 tabs Oral Daily Start Date: 04/06/15 Status: Ordered doxycycline hyclate 100 mg oral capsule 100 mg 1 caps, Oral, Daily, # 60 caps, 2 Refill(s), Pharmacy: [facility], 1 caps Oral Daily Start Date: 07/10/15 Status: Ordered Flonase 50 mcg/inh nasal spray See Instructions, 2 sprays Nasal Daily, # 1 Each, 5 Refill(s), eRx: [facility], 2 sprays Nasal Daily Start Date: 08/06/15 Status: Ordered Hyzaar 50 mg-12.5 mg oral tablet See Instructions, 1 tabs Oral Daily, # 30 tabs, 3 Refill(s), other reason (Rx) Start Date: 03/16/15 Status: Ordered losartan-hydrochlorothiazide 100 mg-25 mg oral tablet 1 tabs, Oral, Daily, # 30 tabs, 5 Refill(s), Pharmacy: [facility] Start Date: 06/05/15 Status: Ordered Misc [...] course Ordered: Biopsy Of Skin, Single Lesion 05092 Office Visit Level 2 New 13951
[2016-09-15 07:00] VITALS: Ht 163.8 cm; Wt 87.3 kg
[2016-09-15] MEDS ORDERED: LR 1,000 ML IV SCH (07:00)
[2016-09-15] MEDS ORDERED: LIDOCAINE 1% (10mg/ml) 2ml SDV INJ ONE (07:00)
[2016-09-15 07:01] VITALS: BP 167/78; PULSE 75; RESP 14; TEMP 98.2; O2SAT 95
[2016-09-15] MEDS ORDERED: BIOT10004 (07:14)
[2016-09-15] MEDS ORDERED: VITAMIN D (07:15)
--- NOTE | 2016-09-15 07:25 | ANESPREOP ---
Anesthesia Record Date and Time DATE: 09/15/16 TIME: 07:23 Pre-Op Diagnosis hx of polyps Proposed Surgical Procedure COLONOSCOPY Allergies: Coded Allergies: benazepril HCl (Verified Allergy, Unknown, 09/15/16) Ht/Wt/BMI Height: 5 ' 4.50 " Weight: 87.300 kg BMI: 32.5 kg/m2 Vital Signs Date Time Temp Pulse Resp B/P Pulse Ox O2 Delivery O2 Flow Rate FiO2 09/15/16 07:01 98.2 75 14 167/78 95 Room Air Medications Inpatient Medications Current Medications Medications (Trade) Dose Ordered Sig/Emely Start Time Stop Time Status Last Admin Dose Admin Lactated Ringer's (Lactated Ringers) 1,000 ml @ 30 mls/hr Q24H 09/15/16 07:00 Amlodipine Besylate (Amlodipine Besylate) 5 Mg Tablet, 1 TAB PO DAILY, (Reported ) Last Taken: on 09/15/16 0500 Biotin (Biotin) 1,000 Mcg Tab.chew, DAILY, ( Reported) Last Taken: on 09/01/16 Losartan/Hydrochlorothiazide (Losartan-Hctz 100-25 mg Tab) 1 Each Tablet, 1 TAB PO DAILY, (Reported) Last Taken: on 09/14/16 0800 [Vitamin D] , DAILY, (Reported) Last Taken: on 09/01/16 Currently on Beta Radha: No Medical/Surgical History Anesthesia PMH: Reports: *Hypertension, Anesthesia Reactions (NAUSEA), Arthritis (hip, back, shoulder), Obesity, Pneumonia (HX), Denies: Cancer, Glaucoma, Malignant Hyperthermia Smoking Status: Never smoker Has pt. smoked today?: No Use Chewing Tobacco?: No Second Hand Exposure: No Substance Use Type: does not use Substance last used: unknown Alcohol Intake: none Last Drink: unknown HX of Last Menstrual Period: HYST. Past Surgical History Orthopedic Surgeries: Abdominal Surgeries: Yes - gall bladder, appy Genitourinary Surgeries: No Cardiac Surgeries: No Endocrine Surgeries: No Reproductive Surgeries: Yes - AMADOR, BSO Neurological Surgeries: No Ear Surgeries: No Nose Surgeries: No Throat Surgeries: No Other Surgeries: Yes - CYSTS-BREAST Anesthesia Adverse Reactions: FOUND nausea and vomiting Family Hx of Anesthesia Advers: none Hx of Motion Sickness: No Pertinent Findings EKG Rhythm: Sinus Rhythm Physical Exam Respiratory: Bilat breath sounds equal, Lungs clear Cardiovascular: FOUND Regular rate, rhythm, FOUND No murmur Airway Assessment Mallampati Score: II TMD: 3 Fingerbreadths Neck Extension: Fair Overall Assessment: May Be Diff Mask Vent., May Be Diff Intubation ASA: 2 Plan Anesthesia Plan: TIVA Discussion Discussed risks/options/alternatives of anesthesia and questions answered. Patient consents. Nursing pain assessment noted. Attestation Statement Prior to the delivery of any anesthetic medication, I examined the patient, developed the plan, obtained the patient's consent and discussed the risk and benefits of the procedure with the patient/guardian. RAHAT RANGEL SINK MAKER Sep 15, 2016 07:25
[2016-09-15] MEDS ORDERED: PROPOFOL 500mg 50 ML IV ONE (09:18)
[2016-09-15] MEDS ORDERED: LIDOCAINE 1% (10mg/ml) 2ml SDV ONE (09:18)
[2016-09-15] MEDS ORDERED: ONDANSETRON 4mg/2ml INJECTION ONE (09:22)
[2016-09-15 09:41] VITALS: BP 145/65; PULSE 68; RESP 14; TEMP 98.3; O2SAT 96
--- NOTE | 2016-09-15 09:49 | ANESPO ---
Post-Op Note Date 09/15/16 Time: 09:48 Status Pt Participated in Evaluation: Pt participated in person Vital Signs Date Time Temp Pulse Resp B/P Pulse Ox O2 Delivery O2 Flow Rate FiO2 09/15/16 09:41 98.3 68 14 145/65 96 Room Air Respiratory Function: Airway patent, Regular respirations Cardiovascular Function: Regular pulse Mental Status: Alert/oriented Pain Level Intensity: 0 Unable to Assess Pain Due To: Medicated/Sleeping Hydration: Taking po fluids, IV infusing Complications during Recovery None apparent Post-Anesthesia Notes pt. reji. well Follow-Up Instructions Instructions Per Surgeon Additional Information none RAHAT RANGEL CRNA Sep 15, 2016 09:48
[2016-09-15 09:50] VITALS: BP 140/65; PULSE 67; RESP 18; O2SAT 97
--- NOTE | 2016-09-15 09:55 | NUR ---
STATUS PATIENT C/O FEELING "CRAMPY". ABDOMEN DISTENDED, NON FIRM, TENDER WHEN PRESSURE APPLIED. PATIENT REPOSITIONED TO RIGHT SIDE AT THIS TIME. PATIENT ABLE TO BELCH FREQUENTLY, UNABLE TO PASS GAS RECTALLY AT THIS TIME. WILL CONTINUE TO MONITOR.
[2016-09-15 10:00] VITALS: BP 139/64; PULSE 71; RESP 21; O2SAT 93
--- NOTE | 2016-09-15 10:00 | NUR ---
STATUS PATIENT REPOSITIONED TO LEFT SIDE. ABLE TO BELCH FREQUENTLY. STATES THE DISCOMFORT IS "BETTER". WILL CONTINUE TO MONITOR. ABDOMEN STILL DISTENDED, NON TENDER.
[2016-09-15 10:15] VITALS: BP 173/75; PULSE 64; RESP 18; O2SAT 99
--- NOTE | 2016-09-15 10:16 | NUR ---
STATUS KATHLEEN WONG APRN IN ROOM TO VISIT WITH PATIENT POSTOP 09/15/16. PATIENT WAS ABLE TO AMBULATE TO BATHROOM WITH RN AND PASS GAS RECTALLY. ABDOMEN NO LONGER DISTENDED, PATIENT STATES IMPROVEMENT IN DISCOMFORT.
[2016-09-15 10:30] VITALS: BP 172/78; PULSE 70; RESP 18; O2SAT 100
--- NOTE | 2016-09-15 19:26 | OPNOTEF ---
DATE OF SERVICE 09/15/2016 SURGEON Sanjeev Jensen MD PREOPERATIVE DIAGNOSIS Personal history of adenomatous colon polyps. POSTOPERATIVE DIAGNOSES Personal history of adenomatous colon polyps. Polyp x 1 in cecum, polyp x 1 at 60 cm from the anal verge. PROCEDURE Colonoscopy with polypectomies via cold biopsy technique. ANESTHESIA TIVA BRIEF HISTORY/INDICATIONS Mrs. Macedo is a 71-year-old female who presents today to [facility] to undergo a colonoscopy as a result of her personal history of adenomatous colon polyps in the past. The patient was found have a single adenomatous colon polyp greater than five years ago upon prior endoscopy. For completeness please refer to notes included in the patient's chart. FINDINGS Upon colonoscopy the patient was found to have two benign-appearing polyps that were both on the order of 5-6 mm in diameter. One was located within the cecum and the second was located at 60 cm from the anal verge . There was no evidence for angiodysplastic lesions, diverticula or richa allergies. NARRATIVE OF PROCEDURE After informed consent was obtained the patient was brought to the endoscopy suite and placed on the table in left lateral decubitus position. Patient subsequently underwent total intravenous anesthesia by the nurse painting worker at my request. Formal timeout was then completed. Next, a digital rectal exam was performed. Normal sphincter tone. No rectal masses were appreciated. An Olympus colonoscope was inserted into the anus and advanced through the lumen of the colon under direct visualization at all times until the cecum was ascertained. Triangulation of the tenia coli, ileocecal valve and appendiceal lumen were all visualized. The scope was slowly withdrawn, maintaining visualization of the lumen at all times. As the scope was being slowly withdrawn one could see a polyp just beyond the ileocecal valve within the cecum. This polyp was on the order of about 5 mm in diameter and removed in its entirety via cold biopsy technique. The scope was continued to be withdrawn where a synchronous/additional polyp was also identified at 60 cm from the anal verge that was removed in its entirety via cold biopsy technique and submitted within a separate container. There was no evidence for angiodysplastic lesions, diverticula or richa malignancies. The colonoscope was withdrawn until it was brought back to the rectal vault. J-maneuver was performed. No worrisome perianal pathology was noted. Scope was allowed to straighten and was withdrawn through the anal verge. Patient tolerated the procedure without difficulty and was sent back to the preop area in stable condition. Will await biopsy results from today's polypectomies and will proceed accordingly with further recommendations thereafter. MELANI
== END 2016-09-15 10:42 | disposition home or self-care (01) ==
LOC: SCU 06:51
PROVIDERS: ATTEND Surgery
DX: Z12.11 Encounter for screening for malignant neoplasm of colon (principal); K63.5 Polyp of colon; Z86.010 Personal history of colon polyps; I10 Essential (primary) hypertension; E78.5 Hyperlipidemia, unspecified; E66.9 Obesity, unspecified; Z68.32 Body mass index [BMI] 32.0-32.9, adult; M81.0 Age-related osteoporosis without current pathological fracture; J30.9 Allergic rhinitis, unspecified; Z79.899 Other long term (current) drug therapy
CPT/HCPCS: 45380; J2405; J7120

== ENCOUNTER 2017-03-28 07:30 | Inpatient (IN) ==
[~2017-03-28 07:30] MED LIST changes: +ACETAMINOPHEN 500 MG TABLET PO ONE; -AMLO5TAB2 PO; +DEXAMETHASONE 4 MG/ML INJECTION IVP ONE; +FAMOTIDINE PB 20 MG/50 ML BAG IV ONE; +LIDOCAINE 1% (10mg/ml) 2mL INJ PF SDV ID ONE; -LOSA1TAB96 PO; +MELOXICAM 15 MG TABLET PO ONE; +METOCLOPRAMIDE 10mg/2ml INJECTION IVP ONE; +NOZIN NASAL SWAB NAS ONE; +ONDANSETRON 4 MG/2 ML INJECTION IVP ONE; +TRANEXAMIC ACID 1,000 MG in NS 100 ML IV ONE
[2017-03-28] MEDS ORDERED: EPINEPHrine PF 0.25 MG, BUPIVACAINE 0.25% PF 30 ML, MORPHINE SULFATE 15 MG, KETOROLAC I... OPSITE ONE (08:00)
[2017-03-28 09:21] VITALS: BMI 34.0
[2017-03-28] MEDS: LR 1,000 ML IV SCH ×2 (10:05→13:22)
--- NOTE | 2017-03-28 11:23 | Anesthesia Preoperative Report ---
Anesthesia Preoperative Record - Date and Time Date: 03/28/17 Preoperative Diagnosis: Lt TKA M17.12 Proposed Procedure: total knee arthroplasty NPO Since Date: 03/28/17 NPO Since Time: 05:00 Allergies/Adverse Reactions: Allergies Allergy/AdvReac Type Severity Reaction Status Date / Time Sulfa (Sulfonamide Allergy Intermediate Cough Verified 03/28/17 09:34 Antibiotics) benazepril HCl Allergy Intermediate Cough Uncoded 03/28/17 09:34 - Vital Signs Vital Signs: Temperature 98.2 F 03/28/17 09:21 Pulse Rate 71 03/28/17 09:41 Respiratory Rate 17 03/28/17 09:21 Blood Pressure 174/76 H 03/28/17 09:21 Pulse Oximetry 95 03/28/17 09:21 Height and Weight: Height 1.64 m Weight 91.5 kg Body Mass Index 34.0 - Medications Inpatient Medications: Current Medications Cefazolin Sodium (Kefzol) 2 g IVP PREOP ONE Stop: 03/28/17 12:01 Lactated Ringer's (Lactated Ringers) 1,000 mls @ 50 mls/hr IV .Q20H DEEJAY Last Admin: 03/28/17 10:05 Dose: 50 mls/hr Epinephrine HCl 0.25 mg/Bupivacaine HCl 30 ml/Morphine Sulfate 15 mg/Ketorolac Tromethamine 60 mg/Sodium Chloride 65.25 mls @ 1 mls/hr OPSITE INTRAOP ONE PRN Reason: Protocol Stop: 03/31/17 01:14 Sodium Chloride (Iv Flush) 10 - 80 ml IV PRN PRN PRN Reason: Flushing Home Medications: Home Medications Medication Instructions Recorded Confirmed Type Amlodipine Besylate 5 mg PO DAILY #90 09/14/16 03/28/17 History Losartan/Hydrochlorothiazide 1 tab PO DAILY #90 09/14/16 03/28/17 History [Losartan-Hctz 100-25 mg Tab] Biotin 5 mg PO DAILY 02/13/17 03/28/17 History Calcium/Soy/Cohosh/Melatonin 1 each PO DAILY 02/13/17 03/28/17 History [Estroven Nighttime Caplet] Cholecalciferol (Vitamin D3) 1 tab PO DAILY 02/13/17 03/28/17 History [Vitamin D3] Fexofenadine [Zhanna] 180 mg PO DAILY PRN 02/13/17 03/28/17 History Fluticasone Propionate 1 spray EA NOSTRIL BID 02/13/17 03/28/17 History Is Patient on Beta Radha?: No - Medical History Cardiovascular: Reports: Hypertension Gastrointestional: Reports: Gastroesophageal Reflux Disease - Surgical History HEENT Surgeries: Reports: Other (wears glasses) GI Surgery/Treatments: Reports: Appendectomy, Cholecystectomy (Lap), Colonoscopy (3-4 years ago) Musculoskeletal Surgery/Tx: Reports: Other (left wrist cyst removed/left middle finger cyst removed) Reproductive Surgery/Treatment: Reports: Hysterectomy, Tubal Ligation, Other ( lap BSO) Anesthesia Reactions: None Hx Family Anesthesia Reaction: No History of Motion Sickness: No - Social History Smoking Status: Never smoker Hx Chewing Tobacco Use: No Second Hand Exposure: No Substance Use Type: does not use Alcohol Intake Frequency: does not drink - Pertinent Findings Laboratory: CBC and BMP 03/28/17 09:33 BMP 03/28/17 09:33 Sodium 143 Potassium 3.7 Chloride 105 Carbon Dioxide 30 BUN 13.0 Creatinine 0.7 Glucose 91 Calcium 9.8 EKG: Sinus Rhythm - Physical Exam Respiratory Exam: Present: lungs clear Cardiovascular Exam: Present: regular rate and rhythm, no murmur - Airway Assessment Mallampati Score: II TMD: 3 Fingerbreadths Neck Extension: fair Teeth: chipped teeth/crowns Overall Assessment: no airway concerns - ASA ASA Score: 2 - Plan Regional/Trunk Block: Spinal - Discussion Discussion: Discussed risks/options/alternatives of anesthesia and questions answered. Patient consents. Nursing pain assessment noted. Present for Discussion: spouse Attestation Statement: Prior to the delivery of any anesthetic medication, I examined the patient, developed the plan, obtained the patient's consent and discussed the risk and benefits of the procedure with the patient/guardian. - Additional Information Seen by Anesthesia: Yes
[2017-03-28] MEDS ORDERED: VANCOMYCIN 1,000 MG INJECTION ONE (11:51)
[2017-03-28] MEDS ORDERED: PROPOFOL 500 MG/50 ML VIAL IV ONE (11:57)
[2017-03-28] MEDS ORDERED: CEFAZOLIN 1 G INJECTION IVP ONE (12:00)
[2017-03-28] MEDS ORDERED: MIDAZOLAM 2mg/2ml INJECTION ONE (12:11)
[2017-03-28] MEDS ORDERED: VANCOMYCIN 1,000 MG INJECTION IAR ONE (12:53)
--- NOTE | 2017-03-28 13:44 | Operative Note ---
- Procedure Preoperative Diagnosis: Left knee primary degenerative joint disease Postoperative Diagnosis: Same as preoperative diagnosis. Surgeon: Ruth Robison MD Hydraulic Pile Hammer Operator: Randell Pretty Complications: None. Anesthesia: Spinal. Estimated Blood Loss: See Anesthesia Record. Fluids: Please see Anesthesia Record. Description of Procedure: Mrs. Macedo and her left knee were identified and marked in the preoperative holding area. She was brought back to the operating suite after a saphenous nerve block was placed in the preoperative holding area. Spinal anesthetic was administered and she was placed supine on the operating table. The left lower extremity was prepped and draped in my normal sterile fashion. Timeout was performed. The Vivorte robot was used during the surgery. She had a fixed varus deformity. A standard anterior midline incision followed by medial parapatellar arthrotomy was performed. Anterior fat pad and meniscus were removed. The patella was resurfaced to a size 29. Tibial and femoral arrays were placed both within the original incision. Checkpoints were then placed both in the femur and the tibia. The bone was then registered with the Vivorte robot. Osteophytes were removed and gaps were captured both 90 and 0 with correction. We manipulated the components using the Vivorte software by bringing the tibia distal 1 mm and the femur anterior 1 mm to achieve a 18 mm gaps. The Vivorte robotic arm was then used to assist with the bone cuts. Posterior osteophytes and remaining meniscus were removed. Trial components were placed. We used a 3 femur and a 3 tibia with a 9 mm spacer. She tracked well and was well balanced throughout range of motion. The leg was exsanguinated and the tourniquet inflated to 250 mmHg. The bone was prepared for cementing and components were cemented into place and allowed to cure in extension. The tourniquet was let down and hemostasis obtained with electrocautery. The knee was ranged one more time to ensure good stability, balance and patellar tracking. 1 g of vancomycin powder was then placed into the knee joint. The capsulotomy was then closed with #1 Vicryl. I then left my therapy assistant to close the subcutaneous tissue with 2-0 Vicryl. Running 4-0 Monocryl will be used in the subcuticular layer. Dermabond will be used on the skin followed by sterile dressing. After drapes are removed patient will be taken to recovery room under the care of anesthesia.
[2017-03-28] MEDS ORDERED: ROPIVACAINE 0.5% (5mg/ml) 30ml INJ ONE (13:47)
--- NOTE | 2017-03-28 14:24 | Anesthesia Procedure Note ---
Peripheral Nerve Blockade - Procedure Physician: Bruno Robison MD Date: 03/28/17 Surgical Procedure: left TKA Discussion: Discussed risks/options/alternatives of anesthesia and questions answered. Patient consents. Nursing pain assessment noted. Block Start: 14:17 Block Stop: 14:21 Blocked Employed: Adductor Canal Indication: Post-Operative Pain Approach: Left Side Confirmed Position: Supine Patient: Consent, Risks/Benefits Discussed, Informed, Post Block Act. Discussed IV Sedation: No Initial Vital Signs: Temperature 98.2 F 03/28/17 09:21 Temperature Source Oral 03/28/17 09:21 Pulse Rate 78 03/28/17 09:21 Respiratory Rate 17 03/28/17 09:21 Blood Pressure 174/76 H 03/28/17 09:21 Blood Pressure Mean 108 03/28/17 09:21 Blood Pressure Position Supine 03/28/17 09:21 Pulse Oximetry 95 03/28/17 09:21 Oxygen Delivery Method 03/28/17 09:21 Post Vital Signs: Temperature 98.2 F 03/28/17 09:21 Pulse Rate 71 03/28/17 09:41 Respiratory Rate 03/28/17 09:21 Blood Pressure 174/76 H 03/28/17 09:21 Pulse Oximetry 95 03/28/17 09:21 Initial Pain Pain Score: 0 Post Block Pain Score: 0 Prep: Chlorhexadine/ETOH Ultrasound Used?: Yes - Injectate Ropivacaine (%): 0.5 Ropivacaine (mL): 20 Injection: Injection made incrementally with constant monitoring and aspiration every ml
--- NOTE | 2017-03-28 14:35 | Anesthesia Postoperative Note ---
- Date and Time Date: 03/28/17 Time: 14:35 - Status Patient Participated in Evaluation: Patient Participated in Person Vital Signs: Temperature 97.2 F 03/28/17 14:10 Pulse Rate 73 03/28/17 14:10 Respiratory Rate 18 03/28/17 14:10 Blood Pressure 117/58 03/28/17 14:10 Pulse Oximetry 98 03/28/17 14:10 Respiratory Function: Airway Patent Cardiovascular Function: Regular Pulse EKG: Sinus Rhythm Mental Status: Alert and Oriented Pain Intensity: 0 Hydration: Taking PO Fluids, IV Infusing Complications During Recover: None Apparent - Follow-Up Instructions Instructions: Per Surgeon
[2017-03-28] MEDS ORDERED: LORazepam 1 MG TABLET PO PRN (14:52)
[2017-03-28] MEDS ORDERED: NAPROXEN 220 MG TABLET PO PRN (14:52)
[2017-03-28] MEDS ORDERED: DiphenhydrAMINE 25 MG CAPSULE PO PRN (14:52)
[2017-03-28] MEDS ORDERED: DiphenhydrAMINE 50 MG/ML INJECTION IVP PRN (14:52)
[2017-03-28] MEDS ORDERED: NOZIN NASAL SWAB NAS ONE (14:52)
[2017-03-28] MEDS ORDERED: ONDANSETRON 4 MG/2 ML INJECTION IVP PRN (14:52)
[2017-03-28] MEDS: NOZIN NASAL SWAB NAS SCH ×3 (14:53→21:23)
[2017-03-28] MEDS: NS 1,000 ML IV SCH (14:53)
--- NOTE | 2017-03-28 15:01 | XRay Report ---
Indication: postoperative image PROCEDURE: XR knee LT 2V: Encounter: Initial Comparison: February 13, 2017 Findings: Postoperative changes of left total knee replacement are seen. There is expected postoperative subcutaneous gas. No evidence of hardware failure or acute fracture. No retained radiopaque surgical instruments or sponges. Overlying material causing artifact. Impression: New left total knee prosthesis without evidence of immediate complication. .
[2017-03-28] MEDS: TRAMADOL 50 MG TABLET PO PRN (16:12)
[2017-03-28] MEDS: DEXAMETHASONE 4 MG/ML INJECTION IVP SCH (17:38)
[2017-03-28] MEDS: ACETAMINOPHEN 325 MG TABLET PO SCH ×2 (17:38→20:13)
[2017-03-28] MEDS ORDERED: SALINE FLUSH 10ml SYRINGE IV PRN (18:28)
[2017-03-28] MEDS: FLUTICASONE NASAL SPRAY 50mcg EA NOSTRIL SCH (20:12)
[2017-03-28] MEDS: DOCUSATE SODIUM 100 MG CAPSULE PO SCH (20:13)
[2017-03-28] MEDS: ASPIRIN *EC* 81 MG TABLET PO SCH (20:13)
[2017-03-28] MEDS: CEFAZOLIN 2 G in NS 100 ML IV SCH (20:14)
[2017-03-28 20:31] VITALS: RESP 16
[2017-03-28] MEDS ORDERED: SENNOSIDES 8.6 MG TABLET PO SCH (21:00)
[2017-03-29] MEDS: DEXAMETHASONE 4 MG/ML INJECTION IVP SCH (03:48)
[2017-03-29] MEDS: NS 1,000 ML IV SCH (03:48)
[2017-03-29] MEDS: CEFAZOLIN 2 G in NS 100 ML IV SCH (03:49)
[2017-03-29] MEDS: NOZIN NASAL SWAB NAS SCH ×2 (05:43→13:04)
[2017-03-29] MEDS: TRAMADOL 50 MG TABLET PO PRN ×2 (05:43→12:04)
--- NOTE | 2017-03-29 08:15 | Orthopedic Progress Note ---
Date: Subjective/Severity of Illness: Pt is doing very well. Pain is well controlled. She was up last night with good tolerance. No CP, cough or SOA. Orthopedic Objective PO Vital signs: Temperature 97.2 F 03/29/17 07:47 Pulse Rate 73 03/29/17 07:47 Respiratory Rate 16 03/29/17 07:47 Blood Pressure 130/66 03/29/17 07:47 Pulse Oximetry 92 03/29/17 07:47 Height and Weight: Height 5 ft 4.5 in Weight 212 lb 15.465 oz Body Mass Index 34.0 - Constitutional General Appearance: Present: alert, cooperative, no acute distress - Respiratory Exam Present: non-labored - Extremities Exam Extremities: Present: pulses intact, normal capillary refill. Absent: calf tenderness - Surgical Site Incision: Mepilex dressing intact, no drainage - Neurological Exam Present: no deficits - Psychiatric Exam Present: alert, normal affect - Labs Result Diagrams: 03/29/17 04:26 03/29/17 04:26 Abnormal lab results 03/29/17 Range/Units 04:26 Chloride 108 H (98-107) MEQ/L BUN 18.0 H (7-17) MG/DL Glucose 144 H (65-110) MG/DL H & H 03/29/17 Range/Units 04:26 Hgb 12.6 (12-16) GM/DL Hct 38.3 (36-46) % Orthopedic Assessment and Plan (1) Primary osteoarthritis of left knee Status: Acute Assessment and Plan: Current anti-coagulation protocol for VTE prophylaxis. SCD's. PT/OT services to improve independent function. Discharge Planning per Case Management. - Anticoagulation Therapy Anticoagulation: ASA 81 mg PO BID x6 weeks Hospital Course Summary Disclaimer: The visit summary below is not to be considered part of the above Progress Note.
[2017-03-29] MEDS: ACETAMINOPHEN 325 MG TABLET PO SCH ×2 (08:58→12:04)
[2017-03-29] MEDS: ASPIRIN *EC* 81 MG TABLET PO SCH (08:59)
[2017-03-29] MEDS: DOCUSATE SODIUM 100 MG CAPSULE PO SCH (08:59)
[2017-03-29] MEDS ORDERED: AMLODIPINE 5 MG TABLET PO SCH (09:00)
[2017-03-29] MEDS ORDERED: POLYETHYL GLYCOL 3350 17gm PACKET PO SCH (09:00)
[2017-03-29] MEDS: FLUTICASONE NASAL SPRAY 50mcg EA NOSTRIL SCH (09:00)
[2017-03-29] MEDS ORDERED: SENNOSIDES 8.6 MG TABLET PO PRN (13:59)
[2017-03-29 14:58] VITALS: BP 121/60; PULSE 71; TEMP 96.7; O2SAT 97
--- NOTE | 2017-03-29 16:20 | Discharge Summary ---
Orthopedic Discharge Info Date of admission: 03/28/17 09:01 Anticipated date of discharge: 03/29/17 Primary care physician: Freeman Gomez DO Attending Physician: Bruno Robison MD Consults: 03/28/17 09:06 Consult to Anesthesiology [CONS] Routine Consulting Provider: KAROL Lozano Reason For Exam: Preoperative Assessment 03/28/17 14:52 Case Management Consult [CONS] Routine Reason For Exam: Discharge Planning DME-Walker [CONS] Routine Height: 5 ft 4.5 in Weight: 201 lb 11.567 oz Comment: change dressing in 2 weeks Total Joint Outpatient Therapy [CONS] Routine Comment: change dressing in 2 weeks 03/29/17 04:50 Case Management Consult [CONS] Routine Reason For Exam: noc ox - Discharge Diagnosis (1) Primary osteoarthritis of left knee Status: Acute - Procedures Procedures: Lt TKA. - Laboratory Result Diagrams: 03/29/17 04:26 03/29/17 04:26 Laboratory: Abnormal lab results 03/29/17 Range/Units 04:26 Chloride 108 H (98-107) MEQ/L BUN 18.0 H (7-17) MG/DL Glucose 144 H (65-110) MG/DL H & H 03/29/17 Range/Units 04:26 Hgb 12.6 (12-16) GM/DL Hct 38.3 (36-46) % Orthopedic Discharge HPI - HPI Comments This patient was admitted for elective surgical tx of end stage degenerative joint disease that failed to respond to conservative treatment. Further details of this is found in the admission H&P. Orthopedic Hospital Course Hospital course: 03/29/17 16:18 After appropriate preoperative clearance and signing of operative consent, the patient was given IV antibiotics, according to orthopedic protocol. The patient was taken to the operating room and underwent elective left total knee arthroplasty. Following surgery, antibiotics were discontinued less than 24 hours according to joint protocol. Aspirin was initiated and SCDs added for DVT prevention. The dressing was clean, dry, and intact. Pain control was obtained via multimodal approach. Bowel motivation addressed with scheduled and PRN medications. Early mobilization was initiated through PT services. Discharge arrangements made by a collaborative effort between the patient and Case Management. Follow-up is scheduled in 2-3 weeks. Discharge instructions given by orthopedic providers and nursing staff at discharge. Discharge condition was good. Ongoing care required?: No Discharge Plan - Med Rec/Dispo Referrals/Follow Up: Bruno Robison MD [Physician] - 04/19/17 10:30 am Bill Instructions: [facility] Postop Instructions Additional Instructions: [facility] ON 03/30/2017 AT 8:45AM FOR PHYSICAL THERAPY EVAL. PHONE Prescriptions: New Acetaminophen [Tylenol] 650 mg PO QID tablet Aspirin *EC* [Ecotrin] 81 mg PO BID #90 tab Docusate Sodium [Colace] 100 mg PO BID capsule Naproxen [Aleve] 440 mg PO BID PRN tablet PRN Reason: Pain PEG 3350 17gm PACKET [Miralax] 17 gm PO DAILY packet Tramadol [Ultram] 50 - 100 mg PO Q6H PRN #60 tab PRN Reason: Pain Milk of Magnesia [Mom] 30 ml PO DAILY udc Continue Amlodipine Besylate 5 mg PO DAILY #90 Losartan/Hydrochlorothiazide [Losartan-Hctz 100-25 mg Tab] 1 tab PO DAILY #90 Fluticasone Propionate 1 spray EA NOSTRIL BID Calcium/Soy/Cohosh/Melatonin [Estroven Nighttime Caplet] 1 each PO DAILY Cholecalciferol (Vitamin D3) [Vitamin D3] 1 tab PO DAILY Fexofenadine [Zhanna] 180 mg PO DAILY PRN PRN Reason: Allergy Symptoms Biotin 5 mg PO DAILY - Disposition 01 Discharged Home, Self-Care - Dismissal Complete Discharge Instructions are:: Complete
[2017-03-30] MEDS ORDERED: BISACODYL 10 MG SUPPOSITORY RECTALLY SCH (20:00)
== END 2017-03-29 16:54 | disposition home or self-care (01) | DRG 470 ==
LOC: SRG 09:01
PROVIDERS: ADMIT Orthopaedic Surgery; ATTEND Orthopaedic Surgery